=== PATIENT | male | born 1960 | race Caucasian/White ===

== ENCOUNTER 2017-06-04 18:58 | Inpatient (IN) | END 2017-06-07 19:10 | disposition home or self-care (01) | DRG 444 ==

== ENCOUNTER 2017-06-11 15:48 | Outpatient (CLI) | END 2017-06-11 16:14 | disposition home or self-care (01) ==

== ENCOUNTER 2017-07-02 14:17 | Outpatient (CLI) | END 2017-07-02 15:56 | disposition home or self-care (01) ==